=== PATIENT | female | born 1980 | race Two or more races ===

== ENCOUNTER 2023-07-23 07:43 | Day surgery (SDC) | payer OTHER ==
[2023-07-21 11:37] LABS: HEMATOCRIT 37.3 % (36.0-45.00); HEMOGLOBIN 12.3 g/dL (12.0-15.00); MEAN CELL VOLUME 87.1 fL (80.00-100.00); MEAN CORPUSCULAR HEMOGLOBIN 28.6 pg (27.00-32.0); MEAN CORPUSCULAR HGB CONC 32.9 g/dl (32.0-36.0); PLATELET COUNT 285 K/uL (150-450); RED BLOOD COUNT 4.29 M/uL (4.00-6.00); RED CELL DISTRIBUTION WIDTH 14.6 % (11.5-14.5)
[2023-07-21 11:43] LABS: PH,URINE 6.5 (5.0-8.0); URINE APPEARANCE Cloudy; URINE BILIRRUBIN Negative (NEGATIVE); URINE BLOOD Negative; URINE COLOR Dark Yellow; URINE GLUCOSE Negative (NEGATIVE); URINE LEUKOCYTE Negative; URINE NITRATE Negative; URINE PROTEIN 30 (NEGATIVE); URINE UROBILINOGEN 0.2 E.U./dl
[2023-07-21 11:48] LABS: URINE BACTERIA 2941.7 uL (0.0-1933); URINE EPITHELIAL CELLS 56.4 uL (0.0-38.8); URINE WBC 11.2 uL (0.0-23.2)
[2023-07-21 11:57] LABS: INR 0.99; PARTIAL THROMBOPLASTIN TIME 25.7 SECONDS (22.0-34.0); PROTHROMBIN TIME 10.4 SECONDS (9.0-11.5)
[2023-07-21 12:06] LABS: ALBUMIN 3.6 gm/dL (3.4-5.0); BILIRUBIN TOTAL 0.38 mg/dL (0.3-1.2); CREATININE SERUM 0.96 mg/dL (0.55-1.02); GFR 63.43; POTASSIUM 3.29 mEq/L (3.5-5.1); TOTAL PROTEIN 6.6 gm/dL (6.4-8.2)
[~2023-07-23] VITALS: Ht 144.8 cm; Wt 49.9 kg
[~2023-07-23 07:43] MED LIST: KETO10TA2 PO
[2023-07-23] MEDS ORDERED: OXYC1TAB9 PO (15:07)
== END 2023-07-23 22:25 | disposition home or self-care (01) ==
LOC: CIR.AMB 07:43
PROVIDERS: ATTEND Surgery
DX: K60.1 Chronic anal fissure (principal); K62.5 Hemorrhage of anus and rectum; R93.5 Abnormal findings on diagnostic imaging of other abdominal regions, including retroperitoneum; I10 Essential (primary) hypertension; Z20.822 Contact with and (suspected) exposure to COVID-19; K62.89 Other specified diseases of anus and rectum; K62.4 Stenosis of anus and rectum

== ENCOUNTER 2023-11-13 05:20 | Day surgery (SDC) | payer OTHER ==
[~2023-11-13 05:20] MED LIST changes: +OXYC1TAB9 PO
[2023-11-13] MEDS ORDERED: CEFAZOLIN SODIUM 1,000 MG VIAL ONE (06:34)
[2023-11-13] MEDS ORDERED: ENOXAPARIN SODIUM 40 MG/0.4 ML SYRINGE SUBCUTANEO ONE (07:14)
[2023-11-13] MEDS ORDERED: EPINEPHRINE HCL/PF 1 MG/ML AMPUL ONE ×2 (08:34→10:21)
[2023-11-13] MEDS ORDERED: LIDOCAINE HCL/EPINEPHRINE 10MG/ML 1% 50ML IJ ONE ×3 (08:37→10:22)
[2023-11-13] MEDS ORDERED: POVIDONE-IODINE 118 ML BOTT TOP ONE (10:04)
[2023-11-13] MEDS ORDERED: BUPIVACAINE HCL/PF 0.5% 30ML ML ONE ×2 (10:20→12:10)
[2023-11-13] MEDS ORDERED: BACITRACIN 28.35 GM OINT.TUBE TOP ONE (10:35)
[2023-11-13] MEDS ORDERED: BACITRACIN 28.35 GM OINT.TUBE TOP SCH (10:45)
[2023-11-13] MEDS ORDERED: EPINEPHRINE HCL/PF 1 MG/ML AMPUL IJ SCH (10:45)
[2023-11-13] MEDS ORDERED: CEFAZOLIN SODIUM 1,000 MG VIAL IV SCH (10:45)
[2023-11-13] MEDS ORDERED: ENOXAPARIN SODIUM 40 MG/0.4 ML SYRINGE SUBCUTANEO SCH (10:45)
[2023-11-13] MEDS ORDERED: BUPIVACAINE HCL/PF 0.5% 30ML ML IJ SCH (11:00)
[2023-11-13] MEDS ORDERED: LIDOCAINE HCL/EPINEPHRINE 10MG/ML 1% 50ML IJ SCH (11:00)
== END 2023-11-13 21:35 | disposition home or self-care (01) ==
LOC: CIR.AMB 05:20
PROVIDERS: ATTEND Specialist
DX: N64.81 Ptosis of breast (principal); E65 Localized adiposity; N60.02 Solitary cyst of left breast; N60.01 Solitary cyst of right breast; Z20.822 Contact with and (suspected) exposure to COVID-19